=== PATIENT | female | born 1945 | race Caucasian/White ===

== ENCOUNTER 2025-05-08 12:25 | Inpatient (IN) | payer OTHER, MEDICARE ==
[~2025-05-08] VITALS: Ht 162.6 cm; Wt 49.9 kg
[~2025-05-08 12:25] MED LIST: ALBU3IS INH; ALBU4; ALBU90OI INH; ALBU90OI6 INH; ALLO100 PO; ALPR.5 PO; AMLO5 PO; AMOX500 PO; AZIT500 PO; BENZ100A PO; CENTRUM SILVER1 EAC3 PO; CEPH500 PO; CLAR500 PO; DILT180 PO; DULERA 100 MCG/13 GM INH; DULERA 200 MCG/13 GM INH; FLUSAL2505 INH; FURO20 PO; GUAI600T33 PO; HYDCHL12.5 PO; HYDROCODONE-AC1 EA10 PO; Hydrochlorothia25 MG PO; LEVO750 PO; LISHYD2025 PO; LISI20 PO; LOSA50 PO; METO50 PO; MORPHINE SULFAT10 MG PO; NYST100000 PO; POTA8 PO; PRAM.125 PO; PRAM.5 PO; PRED20 PO; PRED20 UD; PRED5; Prednisone20 MG PO; TIOT18 INH; UNISOM25 MG PO
[2025-05-08] MEDS ORDERED: HYDROmorphone HCl/Pf 1MG SYR IV ONE (16:20)
[2025-05-08] MEDS ORDERED: BUPR150ER PO (18:06)
[2025-05-08] MEDS ORDERED: METO100ER PO (18:06)
[2025-05-08] MEDS ORDERED: POTCHL20ER PO (18:06)
[2025-05-08 18:07] LABS: BASOPHILS ABSOLUTE AUTO 0.06 K/mm3 (0.00-0.23); BASOPHILS PERCENT AUTO 0 % (0-2); EOSINOPHILS ABSOLUTE AUTO 0.01 K/mm3 (0.00-0.68); EOSINOPHILS PERCENT AUTO 0 % (0-6); Hematocrit 38.6 % (33.0-51.0); Hemoglobin 13.1 g/dL (11.5-16.0); IMMATURE GRAN ABSOLUTE AUTO 0.14 K/mm3 (0.00-0.10); IMMATURE GRAN PERCENT AUTO 1 % (0-1); LYMPHOCYTES ABSOLUTE AUTO 1.09 K/mm3 (0.84-5.20); LYMPHOCYTES PERCENT AUTO 6 % (21-46); MONOCYTES ABSOLUTE AUTO 0.95 K/mm3 (0.16-1.47); MONOCYTES PERCENT AUTO 5 % (4-13); Mean Corpuscular HGB Conc 33.9 g/dL (31.5-36.5); Mean Corpuscular Volume 94 fL (80-100); NEUTROPHILS ABSOLUTE AUTO 15.42 K/mm3 (1.96-9.15); NEUTROPHILS PERCENT AUTO 87 % (41-73); NRBC ABSOLUTE 0.00 K/mm3 (0.00-0.02); NRBC Auto 0.0 /100 WBC (0.0-0.2); Platelet Count 252 K/mm3 (150-400); RDW Coefficient Variation 12.8 % (11.7-14.2); RDW Standard Deviation 44.1 fL (35.1-46.3)
[2025-05-08] MEDS ORDERED: IMODIUM A-D2 M1 (18:07)
[2025-05-08] MEDS ORDERED: FURO40 PO (18:07)
[2025-05-08] MEDS ORDERED: SODCHL1 PO (18:07)
[2025-05-08 18:09] LABS: Source, Urine Straight Cath
[2025-05-08] MEDS ORDERED: ALBU2.5V5 (18:14)
[2025-05-08 18:15] LABS: Bilirubin, Urine Neg (Neg); Color, Urine Yellow (P-Yellow); Glucose Qualitative, Urine Neg (Neg); Ketones, Urine Neg (Neg); Leukocyte Esterase, Urine 1+ (Neg); Protein, Urine 1+ (Neg); Specific Gravity, Urine 1.010 (1.003-1.022); Urobilinogen, Urine NORM (Normal)
[2025-05-08] MEDS ORDERED: ALBU90OI (18:15)
[2025-05-08 18:24] LABS: Red Blood Cells, Urine 0-2 /hpf (0-2)
[2025-05-08 18:54] LABS: Alanine Aminotransfer (ALT/SGP 31.0 U/L (12-78); Albumin, Blood 3.4 g/dL (3.4-5.0); Albumin/Globulin Ratio 1.0 (0.8-1.8); Anion Gap 17.0 mmol/L (3-11); Aspartate Aminotrans (AST/SGOT 29.0 U/L (12-37); Bilirubin, Total 1.1 mg/dL (0.1-1.0); Blood Urea Nitrogen 17.0 mg/dL (8-24); CO2, Blood 24.0 mmol/L (21-32); Calcium, Blood 8.4 mg/dL (8.5-10.1); Chloride, Blood 91.0 mmol/L (98-108); Creatinine, Blood 1.09 mg/dL (0.40-1.00); Globulin, Blood 3.4 g/dL (2.2-4.0); Glucose, Blood 51.0 mg/dL (70-99); Potassium, Blood 4.4 mmol/L (3.5-5.5); Sodium, Blood 128.0 mmol/L (136-145); Total Protein, Blood 6.8 g/dL (6.4-8.2)
[2025-05-08] MEDS ORDERED: NS 1,000 ML IV SCH ×2 (19:10→19:35)
[2025-05-08] MEDS ORDERED: CefTRIAXone Sodium 1,000 MG in NS 100 ML IV ONE (19:10)
[2025-05-08] MEDS ORDERED: HYDROmorphone HCl/Pf 1MG SYR IV SCH (19:10)
[2025-05-08] MEDS ORDERED: Albuterol 2.5 MG/3 ML VIAL INH PRN (19:30)
[2025-05-08] MEDS ORDERED: Ondansetron HCl 2 MG / ML 2ML Vial IV PRN (19:30)
[2025-05-08] MEDS ORDERED: Magnesium Sulf 2 GM/Water 50ML 50 ML IV ONE (21:15)
[2025-05-08 22:22] VITALS: BP 126/46
[2025-05-09] VITALS (13 sets, daily range): BP systolic 99–144; BP diastolic 49–93
[2025-05-09] MEDS ORDERED: D5W-1/2NS 1,000 ML IV SCH ×2 (04:10→04:25)
--- NOTE | 2025-05-09 04:14 | NUR ---
SHIFT SUMMARY PT ER ADMIT THIS SHIFT FOR L HIP FX, PLAN IS FOR OR TODAY. PT HAS RESTED IN BED, DENIES NEEDS DURING NURSE ROUNDS. PT HAD NOT VOIDED IN ER OR SINCE ADMISSION, BLADDER SCAN REVEALED OVER 600 MLS IN BLADDER. PT WAS THEN ABLE TO VOID 300 MLS USING FRACTURE BRO. PT CONFUSED, BUT FOLLOWS DIRECTIONS WELL AND ANSWERS QUESTIONS APPROPRIATELY. HOWEVER AT TIMES PT WILL MAKE STATEMENTS AT TIMES THAT DO NOT MAKE SENSE AND FORGETS WHERE SHE IS. VITALS ARE STABLE. PT NPO FOR PROCEDURE. BED IN LOWEST POSITION, CALL LIGHT WITHIN REACH.
[2025-05-09] MEDS ORDERED: Naloxone HCl 0.4MG / ML 1ML Vial IV PRN ×2 (05:25→14:15)
[2025-05-09] MEDS ORDERED: HYDROmorphone HCl/Pf 1MG SYR IV PRN ×3 (05:25→14:20)
[2025-05-09 05:26] LABS: Hematocrit 36.6 % (33.0-51.0); Hemoglobin 12.1 g/dL (11.5-16.0); Mean Corpuscular HGB Conc 33.1 g/dL (31.5-36.5); Mean Corpuscular Volume 95 fL (80-100); NRBC ABSOLUTE 0.00 K/mm3 (0.00-0.02); NRBC Auto 0.0 /100 WBC (0.0-0.2); Platelet Count 204 K/mm3 (150-400); RDW Coefficient Variation 12.7 % (11.7-14.2); RDW Standard Deviation 43.9 fL (35.1-46.3)
[2025-05-09 05:56] LABS: Anion Gap 8.0 mmol/L (3-11); Blood Urea Nitrogen 20.0 mg/dL (8-24); CO2, Blood 29.0 mmol/L (21-32); Calcium, Blood 7.5 mg/dL (8.5-10.1); Chloride, Blood 98.0 mmol/L (98-108); Creatinine, Blood 1.24 mg/dL (0.40-1.00); Glucose, Blood 83.0 mg/dL (70-99); Magnesium, Blood 2.1 mg/dL (1.6-2.4); Potassium, Blood 3.7 mmol/L (3.5-5.5); Sodium, Blood 131.0 mmol/L (136-145)
[2025-05-09] MEDS ORDERED: Folic Acid 1 MG TAB PO SCH (09:00)
[2025-05-09] MEDS ORDERED: Multivitamins 1 Tab PO SCH (09:00)
--- NOTE | 2025-05-09 10:44 | NUR ---
PT'S DAUGHTER EDEN PHONE NUMBER IS .
[2025-05-09] MEDS ORDERED: Ondansetron HCl 2 MG / ML 2ML Vial IV PRN ×2 (12:55→14:15)
[2025-05-09] MEDS ORDERED: FentaNYL Citrate 50 MCG/ML 2 ML Injection IV PRN ×2 (12:55)
[2025-05-09] MEDS ORDERED: Albuterol 2.5 MG/3 ML VIAL INH PRN ×2 (12:55)
[2025-05-09] MEDS ORDERED: Tranexamic Acid 100 ML IV ONE (14:01)
[2025-05-09] MEDS ORDERED: CeFAZolin Sodium 2,000 MG VIAL ONE (14:01)
[2025-05-09] MEDS ORDERED: HYDROcodone 5-APAP 325 TAB PO PRN (14:10)
[2025-05-09] MEDS ORDERED: Magnesium Hydroxide Conc 10 ML UDC PO PRN (14:15)
[2025-05-09] MEDS ORDERED: FentaNYL Citrate 50 MCG/ML 2 ML Injection ONE (14:37)
[2025-05-09] MEDS ORDERED: ePHEDrine Sulfate 50 MG/ML 1ML Injection ONE (14:48)
--- NOTE | 2025-05-09 17:36 | NUR ---
SHIFT SUMMARY S/P LEFT PERC HIP PINNING. BULKY FOAM DRESSING IS CDI. PT DENIES PAIN. ON 4L VIA NC TO MAINTAIN SATS >92%. PLAN TO TITRATE DOWN TOLERATED TO BASELINE OF 2L. OFFERING SIPS OF WATER AND PO. NO POST OP VOID YET. PUREWICK IN PLACE. POST OP VSS AND IN PROGRESS. BED ALARM IN PLACE FOR SAFETY. PT IS A+O X4, BUT CAN BE FORGETFUL AT TIMES. LAST CIWA SCORE WAS 4. CALL LIGHT WITHIN REACH.
[2025-05-10 04:07] VITALS: BP 123/56
--- NOTE | 2025-05-10 04:56 | NUR ---
BIOMETRICS ANALYST SUMMARY PT IS POD 0 FOR L HIP PINNING. BULKY GAUZE DRESSING TO L HIP C/D/I. PT AAOX4 WITH SOME INTERMITTENT CONFUSION BUT IS EASILY REORIENTED. PT HAS HAD GOOD PAIN CONTROL THROUGH THE NIGHT AND HAS NOT REQUESTED PAIN MEDS THUS FAR. PT WAS ABLE TO USE THE BEDPAN AND VOID AROUND 600 ML EARLIER IN SHIFT WHICH WAS HER FIRST POST OP VOID. PT IS STILL AWAITING HER FIRST SESSION WITH PHYSICAL THERAPY.CAROLINES, DEREK.
[2025-05-10 05:57] VITALS: BP 131/69
[2025-05-10 06:05] LABS: BASOPHILS ABSOLUTE AUTO 0.01 K/mm3 (0.00-0.23); BASOPHILS PERCENT AUTO 0 % (0-2); EOSINOPHILS ABSOLUTE AUTO 0.00 K/mm3 (0.00-0.68); EOSINOPHILS PERCENT AUTO 0 % (0-6); Hematocrit 35.1 % (33.0-51.0); Hemoglobin 11.6 g/dL (11.5-16.0); IMMATURE GRAN ABSOLUTE AUTO 0.08 K/mm3 (0.00-0.10); IMMATURE GRAN PERCENT AUTO 1 % (0-1); LYMPHOCYTES ABSOLUTE AUTO 0.76 K/mm3 (0.84-5.20); LYMPHOCYTES PERCENT AUTO 8 % (21-46); MONOCYTES ABSOLUTE AUTO 0.28 K/mm3 (0.16-1.47); MONOCYTES PERCENT AUTO 3 % (4-13); Mean Corpuscular HGB Conc 33.0 g/dL (31.5-36.5); Mean Corpuscular Volume 96 fL (80-100); NEUTROPHILS ABSOLUTE AUTO 8.07 K/mm3 (1.96-9.15); NEUTROPHILS PERCENT AUTO 88 % (41-73); NRBC ABSOLUTE 0.00 K/mm3 (0.00-0.02); NRBC Auto 0.0 /100 WBC (0.0-0.2); Platelet Count 215 K/mm3 (150-400); RDW Coefficient Variation 12.7 % (11.7-14.2); RDW Standard Deviation 45.4 fL (35.1-46.3)
--- NOTE | 2025-05-10 06:17 | NUR ---
PT HAVING INCREASED CONFUSION AND HALLUCINATIONS. PT HAD EMPTY MEDICATION BOTTLE FROM HOME ON HER BED THAT WAS EMPTY. MEDICATION LABEL WAS FOR NARCOTIC PAIN MEDICATION THAT WAS FILLED IN [place]ARCH AT PHARMACY IN [place] WHICH PT RECENTLY MOVED FROM. PT DENIES TAKING ANY OF THESE MEDICATIONS WHILE AT THE HOSPITAL. PT STATED "THERE WAS A MAN IN A BLACK HOODIE THAT WAS SITTING NEXT TO ME EARLIER THAT I PAID FOR HELPING ME MOVE MY STUFF OUT OF THE AUL. MAYBE HE TOOK THE PILLS". PT'S VITALS ARE WNL. NOTIFIED DR ENNIS OF INCREASED CONFUSION AND HALLUCINATIONS AND POSSIBILITY OF PT TAKING HOME NARCOTICS. DR ENNIS STATED THAT SINCE VITALS AND RESPIRATORY STATUS ARE STABLE AT THIS TIME TO JUST MONITOR FOR NOW AND MAKE SURE THAT AN ORDER OF NARCAN IS ON HER MAR AND TO GIVE A LOWER 25 MG DOSE OF LIBRIUM NOW. LIBRIUM GIVEN, PT STILL CONFUSED BUT IS COOPERATIVE AND FOLLOWS DIRECTION. WCTM.
[2025-05-10 06:28] LABS: Anion Gap 10.0 mmol/L (3-11); Blood Urea Nitrogen 16.0 mg/dL (8-24); CO2, Blood 28.0 mmol/L (21-32); Calcium, Blood 8.3 mg/dL (8.5-10.1); Chloride, Blood 98.0 mmol/L (98-108); Creatinine, Blood 1.04 mg/dL (0.40-1.00); Glucose, Blood 123.0 mg/dL (70-99); Potassium, Blood 4.0 mmol/L (3.5-5.5); Sodium, Blood 132.0 mmol/L (136-145)
[2025-05-10 07:05] VITALS: BP 141/64
--- NOTE | 2025-05-10 10:30 | NUR ---
PALLIATIVE CARE VISIT: CALLED BY RN TO CONSULT FOR REFERRAL TO COMPLETE [facility]. REVIEWED MEDICAL RECORD, SPOKE TO DR. CARLSON PRIOR TO VISIT. MET WITH PT IN HER ROOM. PT IS A/O X 4 ABLE TO MAKE INFORMED DECISIOMS. SHE STATED SHE HAD ELECTED TO BE DNR PRIOR HOSPITALIZATIONS. SHE WOULD NOT WANT INTUBATION. POLST COMPLETED PER HER REQUESTED CHOICES. SENT TO [facility] REGISTRY, MEDICAL RECORDS AND COPY ON CHART. ORIGINAL TO GO TO PT.
[2025-05-10 10:49] VITALS: BP 122/54
--- NOTE | 2025-05-10 12:28 | NUR ---
WOUND CARE WOUND CARE DONE TO L HIP THIS SHIFT PER DR. DURON ORDER IN THE EMAR.
[2025-05-10 14:49] VITALS: BP 119/59
[2025-05-10] MEDS ORDERED: Enoxaparin 30 MG/0.3 ML SYR SC SCH (17:00)
--- NOTE | 2025-05-10 18:04 | NUR ---
SHIFT SUMMARY PT AOX3-4, APPEARED TO HALLUCINATE AT TIMES BUT ABLE TO REORIENT. ABLE TO TELL THE PT THAT WHAT WAS BEING SAID COULD NOT HAVE HAPPENED AND SHE WOULD SAY, "THAT WAS A HALLUCINATION". MEDICATED FOR ETOH PER THE EMAR, ALSO MEDICATED FOR PAIN PER THE EMAR. REPOSITIONED THROUGHOUT THE SHIFT. 1 ASSIST WITH THE FWW TO THE CHAIR. SEE WOUND CARE NOTE. PT CALLS AND MAKES HER NEEDS KNOWN. POSSIBLE DC TO SNF. CALL LIGHT WITHIN REACH, BED LOCKED AND IN THE LOWEST POSITION. WILL REPORT TO ONCOMING NURSE.
[2025-05-10 20:01] VITALS: BP 116/59
[2025-05-11 02:31] VITALS: BP 134/68
--- NOTE | 2025-05-11 03:24 | NUR ---
PT WITH INCREASED CONFUSION,ATTEMPTING OOB WITHOUT CALLING,IMPULSIVE.PULLING AT LINES, TAKING OFF O2,BUT DESATS TO 83% GAVE LIBRIUM 25 MG WITH INEFFECTIVE RESULTS.GAVE ADDITIONAL LIBRIUM.
--- NOTE | 2025-05-11 05:10 | NUR ---
SUMMARY PT CONTINUES INCREASING HALLUCINATIONS.PICKS AT TUBINGS,CIWA 11. PT HAS ONLY MINIMAL VOID. REPORTS SHE ONLY VOIDS 2 X DAY AT HOME WITH BASELINE REPORTED 600-700 ML EACH VOID WITH PRIOR HOSPITALIZATIONS.CURRENT BLADDER SCAN 451 ML. BSC WITH DRIBBLING ONLY.PT WITH NO URGE TO VOID,NO DISCOMFORT,MEPLEX REPLACED TO COCCYX FOR REDNESS AND PLLACED TO UPPER SPINE WITH "SCOLIOSIS" FOR MILD PINK.FIRE ASSISTANT RONDA CALLED HOSPITALIST REGARDING ABOVE AND RECEIVED ORDERS.
[2025-05-11 07:19] VITALS: BP 133/71
--- NOTE | 2025-05-11 14:31 | NUR ---
pt unable to void this shift. bladder scanned for greater than 1000cc. Dr Campos contacted. Plan is to place yun catheter.
[2025-05-11 14:33] VITALS: BP 145/75
--- NOTE | 2025-05-11 17:42 | NUR ---
PT SLEEPING. IV INFUSING R ARM. PETERSON CATH DRAINING CLEAR YELLOW URINE. WILL CONTINUE TO MONITOR.
[2025-05-11 18:16] VITALS: BP 119/62
[2025-05-12 03:48] VITALS: BP 151/72
--- NOTE | 2025-05-12 04:35 | NUR ---
SHIFT SUMMARY POD 3 S/P LEFT HIP REPAIR. PT VERY CONFUSED AND IMPULSIVE AT TIMES. CIWA OF 8. MEDICATED PER EMAR. AQUACEL DRESSING X1 TO LEFT HIP CDI. PETERSON TO GRAVITY, YELLOW URINE NOTED. IVF INFUSING PER ORDERS. BED ALARM OF FOR SAFETY. PT ABLE TO MAKE NEEDS KNOWN. HAS CALL LIGHT. ON 2L NC, CONT BIOX IN PLACE W/ SPO2 AT 98%. PLAN TO WORK WITH THERAPY TODAY. WILL GIVE REPORT TO ONCOMING RN.
[2025-05-12 07:34] VITALS: BP 132/82
[2025-05-12 09:25] LABS: Anion Gap 7.0 mmol/L (3-11); Blood Urea Nitrogen 11.0 mg/dL (8-24); CO2, Blood 28.0 mmol/L (21-32); Calcium, Blood 8.2 mg/dL (8.5-10.1); Chloride, Blood 102.0 mmol/L (98-108); Creatinine, Blood 0.96 mg/dL (0.40-1.00); Glucose, Blood 60.0 mg/dL (70-99); Magnesium, Blood 1.3 mg/dL (1.6-2.4); Potassium, Blood 3.4 mmol/L (3.5-5.5); Sodium, Blood 134.0 mmol/L (136-145)
--- NOTE | 2025-05-12 11:56 | NUR ---
[facility] is awake and sitting on a chair when she welcomes my visit. Pt. is pleasant but displays evidence of being drowsy. Faciliate a life review and pt. shares that she was raised in a mormonism amish but has not attended any amish in many years. Listen with empathy and interest. Consider other matters of niko, family and belief and Pt. displayed more evidence of somnolemce. Prayed for the Pt. Pt. was completely somnolent at the end of the visit.
[2025-05-12] MEDS ORDERED: Magnesium Sulf 2 GM/Water 50ML 50 ML IV ONE (15:05)
[2025-05-12 15:38] VITALS: BP 145/70
--- NOTE | 2025-05-12 17:05 | NUR ---
SHIFT SUMMARY PT RESTING IN BED. UP TO CHAIR EARLIER. MEDICATED PER CIWA X-1 TODAY. PT REMAINS CALM AT THIS TIME. WILL CONTINUE TO MONITOR.
[2025-05-12 19:41] VITALS: BP 164/78
[2025-05-13 04:33] VITALS: BP 154/66
[2025-05-13 04:52] LABS: Magnesium, Blood 1.4 mg/dL (1.6-2.4)
[2025-05-13 04:58] LABS: Anion Gap 10.0 mmol/L (3-11); Blood Urea Nitrogen 9.0 mg/dL (8-24); CO2, Blood 26.0 mmol/L (21-32); Calcium, Blood 8.2 mg/dL (8.5-10.1); Chloride, Blood 101.0 mmol/L (98-108); Creatinine, Blood 0.88 mg/dL (0.40-1.00); Glucose, Blood 47.0 mg/dL (70-99); Potassium, Blood 3.8 mmol/L (3.5-5.5); Sodium, Blood 133.0 mmol/L (136-145)
--- NOTE | 2025-05-13 06:38 | NUR ---
SHIFT SUMMARY NOC. PT A/O TO SELF AND PERSON. PT CONFUSED AND HAVING HALLUCINATIONS AT START OF SHIFT. HALLUCINATIONS IMPROVED T/O THE NIGHT, CIWA'S Q4 HOURS LESS THAN SCORE OF 8, PLEASE SEE DOCUMENTATION. PT SETS OFF BED ALARM OCCASIONALLY BUT IS REDIRECTABLE. AQUACEL C/D/I. PT HAD A BM THIS SHIFT. PETERSON CATHETER BELOW BLADDER LEVEL AND DRAINING TO GRAVITY. PT MEDICATED FOR PAIN X1 WITH NORCO. PT HAD HYPOGLYCEMIC EVENT WITH CBG OF 47, PT HAD NO INCREASED CONFUSION WITH LOW CBG, PT DRANK 8 OUNCES OF ORANGE JUICE AND GLUCOSE CAME UP TO 65. SKI PATROL OFFICERBABAK NAQVI NOTIFIED PROVIDER. CALL LIGHT IN REACH.
[2025-05-13] MEDS ORDERED: Mag Sulfate 1 GM/D5% 100ML 100 ML IV STA (08:35)
[2025-05-13 14:41] VITALS: BP 166/81
--- NOTE | 2025-05-13 18:37 | NUR ---
SUMMARY: PT IS POD4 R HIP REPAIR. VSS. PT HAS BEEN A/O MOST OF TODAY. A LITTLE MORE FORGETFUL TONIGHT. BED/CHAIR ALARM SET, PT HAS BEEN USING CALL LIGHT. SURGICAL SITE WNL, PT MOVES WELL WITH SBA AND FWW. PETERSON DC'D AND PT VOIDED WITH A BM TONIGHT-UNMEASURED. PT HAS DENIED PAIN, CIWA SCORE 0-1 TODAY. PLAN IS FOR SNF TOMORROW. THIS RN SPOKE WITH DAUGHTER ISAIAH AND UPDATED ON PT STATUS. NO ACUTE CONCERNS AT THIS TIME.
[2025-05-13 19:57] VITALS: BP 148/74
[2025-05-14 04:11] VITALS: BP 174/87
[2025-05-14 04:52] LABS: Anion Gap 10.0 mmol/L (3-11); Blood Urea Nitrogen 9.0 mg/dL (8-24); CO2, Blood 30.0 mmol/L (21-32); Calcium, Blood 8.5 mg/dL (8.5-10.1); Chloride, Blood 99.0 mmol/L (98-108); Creatinine, Blood 0.76 mg/dL (0.40-1.00); Glucose, Blood 72.0 mg/dL (70-99); Magnesium, Blood 1.6 mg/dL (1.6-2.4); Potassium, Blood 3.6 mmol/L (3.5-5.5); Sodium, Blood 135.0 mmol/L (136-145)
[2025-05-14 05:43] VITALS: BP 156/86
--- NOTE | 2025-05-14 06:26 | NUR ---
SHIFT SUMMARY PT S/P R HIP REPAIR. SURGICAL SITE WNL, AQUACEL TO LEFT HIP C/D/I. PAIN MANAGED PER EMAR. PT FORGETFUL, BUT EASILY REDIRECTABLE. PT HAS BEEN UP AND AMBULATING WITH 1 PA. PT VOIDING POST CATHETER REMOVAL YESTERDAY AFTERNOON. VITALS STABLE. PLAN OF CARE REMAINS UNCHANGED. BED IN LOWEST POSITION, CALL LIGHT WITHIN.
[2025-05-14 07:12] VITALS: BP 171/81
[2025-05-14] MEDS ORDERED: Mag Sulfate 1 GM/D5% 100ML 100 ML IV STA (07:50)
[2025-05-14] MEDS ORDERED: LOSA25 PO (10:14)
[2025-05-14] MEDS ORDERED: DOCU100 PO (10:14)
[2025-05-14] MEDS ORDERED: B-1100 M1 PO (10:15)
[2025-05-14] MEDS ORDERED: POTA10T PO (10:16)
[2025-05-14] MEDS ORDERED: ONE DAILY MUL400 MCG PO (10:16)
[2025-05-14] MEDS ORDERED: XARELTO10 M1 PO (10:17)
[2025-05-14] MEDS ORDERED: CIPR250 PO ×2 (13:45→14:43)
[2025-05-14 15:45] VITALS: BP 165/79
--- NOTE | 2025-05-14 16:34 | NUR ---
DISCHARGE PT CURRENTLY A+O X4. EDUCATED ON AND RECEIVED PRINTED DISCHARGE INSTRUCTIONS AND VERBALIZED AN UNDERSTANDING. RX FAXED TO [facility] PER PT REQUEST. IV DC'D. PT GATHERED ALL PERSONAL BELONGINGS. PT REPORTS DAUGHTER WILL BE HERE TO PICK PT UP AND TAKE HER HOME AT APPROX 1700. EXTRA AQUACEL DRESSINGS GIVEN TO PT. CALL LIGHT WITHIN REACH. BED ALARM IN PLACE.
== END 2025-05-14 17:40 | disposition home or self-care (01) | DRG 480 ==
LOC: ER 12:25 → SURS 19:22
PROVIDERS: Internal Medicine; Nurse Practitioner Acute Care; Orthopaedic Surgery; Student in an Organized Health Care Education/Training Program; ADMIT Student in an Organized Health Care Education/Training Program
PROC: 0QH734Z Insertion of Internal Fixation Device into Left Upper Femur, Percutaneous Approach (ICD-10-PCS; principal; 2025-05-09 10:45)
DX: S72.012A Unspecified intracapsular fracture of left femur, initial encounter for closed fracture (principal); J96.21 Acute and chronic respiratory failure with hypoxia; E87.1 Hypo-osmolality and hyponatremia; E87.20 Acidosis, unspecified; N17.9 Acute kidney failure, unspecified; N39.0 Urinary tract infection, site not specified; W01.0XXA Fall on same level from slipping, tripping and stumbling without subsequent striking against object, initial encounter; J44.9 Chronic obstructive pulmonary disease, unspecified; Z79.899 Other long term (current) drug therapy; Z90.49 Acquired absence of other specified parts of digestive tract; Z90.710 Acquired absence of both cervix and uterus; Z98.890 Other specified postprocedural states; Z88.5 Allergy status to narcotic agent; M21.052 Valgus deformity, not elsewhere classified, left hip; F32.A Depression, unspecified; E16.2 Hypoglycemia, unspecified; F10.20 Alcohol dependence, uncomplicated; I12.9 Hypertensive chronic kidney disease with stage 1 through stage 4 chronic kidney disease, or unspecified chronic kidney disease; N18.30 Chronic kidney disease, stage 3 unspecified; F17.210 Nicotine dependence, cigarettes, uncomplicated; B96.20 Unspecified Escherichia coli [E. coli] as the cause of diseases classified elsewhere; G31.2 Degeneration of nervous system due to alcohol; J43.9 Emphysema, unspecified
CPT/HCPCS: 36415; 70450; 73502; 80048; 80053; 81001; 82947; 83605; 83735; 83880; 85025; 85027; 87040; 87077; 87086; 87186; 93005; 93010; 93971; 94640; 94664; 94760; 94762; 96374; 97110; 97112; 97116; 97162; 97166; 97530; 97535; 99285-25; A9270; C1713; C1769; J0690; J0696; J1171; J1650; J2704; J3010; J3411; J3475; J7030; J7042; J7120

== ENCOUNTER 2025-05-20 11:09 | Inpatient (IN) | payer MEDICARE ==
[~2025-05-20] VITALS: Ht 162.6 cm; Wt 44.5 kg
[~2025-05-20 11:09] MED LIST changes: +ALBU2.5V5; +ALBU90OI; +B-1100 M1 PO; +BUPR150ER PO; +CIPR250 PO; +DOCU100 PO; +FURO40 PO; +IMODIUM A-D2 M1; +LOSA25 PO; +METO100ER PO; +ONE DAILY MUL400 MCG PO; +POTA10T PO; +POTCHL20ER PO; +SODCHL1 PO; +XARELTO10 M1 PO
[2025-05-20 12:09] LABS: Source, Urine Clean Catch
[2025-05-20 12:19] LABS: BASOPHILS ABSOLUTE AUTO 0.09 K/mm3 (0.00-0.23); BASOPHILS PERCENT AUTO 1 % (0-2); EOSINOPHILS ABSOLUTE AUTO 0.30 K/mm3 (0.00-0.68); EOSINOPHILS PERCENT AUTO 4 % (0-6); Hematocrit 34.7 % (33.0-51.0); Hemoglobin 11.0 g/dL (11.5-16.0); IMMATURE GRAN ABSOLUTE AUTO 0.04 K/mm3 (0.00-0.10); IMMATURE GRAN PERCENT AUTO 1 % (0-1); LYMPHOCYTES ABSOLUTE AUTO 2.00 K/mm3 (0.84-5.20); LYMPHOCYTES PERCENT AUTO 27 % (21-46); MONOCYTES ABSOLUTE AUTO 0.72 K/mm3 (0.16-1.47); MONOCYTES PERCENT AUTO 10 % (4-13); Mean Corpuscular HGB Conc 31.7 g/dL (31.5-36.5); Mean Corpuscular Volume 98 fL (80-100); NEUTROPHILS ABSOLUTE AUTO 4.34 K/mm3 (1.96-9.15); NEUTROPHILS PERCENT AUTO 58 % (41-73); NRBC ABSOLUTE 0.00 K/mm3 (0.00-0.02); NRBC Auto 0.0 /100 WBC (0.0-0.2); Platelet Count 309 K/mm3 (150-400); RDW Coefficient Variation 12.8 % (11.7-14.2); RDW Standard Deviation 46.0 fL (35.1-46.3)
[2025-05-20 12:31] LABS: Bilirubin, Urine Neg (Neg); Glucose Qualitative, Urine Neg (Neg); Ketones, Urine Neg (Neg); Leukocyte Esterase, Urine Neg (Neg); Protein, Urine Neg (Neg); Specific Gravity, Urine 1.010 (1.003-1.022); Urobilinogen, Urine NORM (Normal)
[2025-05-20 12:38] LABS: Alanine Aminotransfer (ALT/SGP 16.0 U/L (12-78); Albumin, Blood 2.9 g/dL (3.4-5.0); Albumin/Globulin Ratio 0.9 (0.8-1.8); Anion Gap 7.0 mmol/L (3-11); Aspartate Aminotrans (AST/SGOT 15.0 U/L (12-37); Bilirubin, Total 0.5 mg/dL (0.1-1.0); Blood Urea Nitrogen 28.0 mg/dL (8-24); CO2, Blood 30.0 mmol/L (21-32); Calcium, Blood 9.7 mg/dL (8.5-10.1); Chloride, Blood 103.0 mmol/L (98-108); Creatinine, Blood 1.81 mg/dL (0.40-1.00); Globulin, Blood 3.2 g/dL (2.2-4.0); Glucose, Blood 88.0 mg/dL (70-99); Magnesium, Blood 1.5 mg/dL (1.6-2.4); Potassium, Blood 4.2 mmol/L (3.5-5.5); Sodium, Blood 136.0 mmol/L (136-145); Total Protein, Blood 6.1 g/dL (6.4-8.2)
[2025-05-20 12:43] LABS: Color, Urine Pale Yellow (P-Yellow)
[2025-05-20] MEDS ORDERED: CefTRIAXone Sodium 1,000 MG in NS 100 ML IV ONE (13:05)
[2025-05-20] MEDS ORDERED: NS 1,000 ML IV SCH ×2 (13:05→23:20)
[2025-05-20] MEDS ORDERED: Heparin Sodium,Porcine 5,000 UNIT/0.5 ML SDV SC SCH (14:00)
[2025-05-20 15:28] VITALS: BP 136/63
--- NOTE | 2025-05-20 16:25 | NUR ---
PATIENT ARRIVED TO UNIT VIA GOURNEY AND HOSPITAL STAFF. ORIENTED TO ROOM AND CALL LIGHT USE. ENCOURAGED TO USE THE CALL LIGHT FOR BATHROOM NEEDS. BOLUS FINISHING UP, DISCONNECTED FROM PATIENT. BED IN LOW POSITION. SOME NOTED BLANCHABLE REDNESS ON COCCYX. PATIENT ALERT AND ORIENTED. NO CONCERNS
[2025-05-20] MEDS ORDERED: HYDROcodone 5-APAP 325 TAB PO PRN (18:40)
[2025-05-20 19:24] VITALS: BP 124/67
--- NOTE | 2025-05-21 00:18 | NUR ---
BLADDER SCAN SHOWS <288MLS URINE. PT REPORTS SHE HAVEN'T VOIDED SINCE THE BEGINNING OF THE DIRECTOR SALES AND [employer] MARKETING. PT ABLE TO VOID IN THE RESTROOM. CHARGE NURSE TONIO NOTIFIED. NS INFUSION STARTED ORDERED @100MLS/HR.
--- NOTE | 2025-05-21 03:57 | NUR ---
SHIFT SUMMARY @HS PT UP SITTING BY THE BEDSIDE, USED RESTROOM TO VOID. AT MIDNIGHT BLADDER SCAN SHOWING <288MLS IN THE BLADDER. ENCOURAGED TO USE THE CALL LIGHT WHEN NEED TO VOID. PT RESTING WELL T/O THE NIGHT. NS INFUSING ORDERED. PT C/O CHRONIC NECK AND BACK PAIN, PRN NORCO ADMINISTERED ORDERED. PT REPORTS 9/10 IN PAIN SCALE. EFFECTIVE. LEFT FEMUR FRACTURE DRESSING C/D/I. PT IS SBA/1-PERSON ASSIST WITH FWW TO THE RESTROOM. PT IS A/O X4, APPEARED ANXIOUS AT HS. BED AT THE LOWEST POSITION, CALL LIGHT WITHIN REACH. WILL BLADDER SCAN BEFORE 0645/END OF THIS SHIFT. CHARGE NURSE TONIO WAS NOTIFIED.
[2025-05-21 04:57] LABS: BASOPHILS ABSOLUTE AUTO 0.08 K/mm3 (0.00-0.23); BASOPHILS PERCENT AUTO 1 % (0-2); EOSINOPHILS ABSOLUTE AUTO 0.26 K/mm3 (0.00-0.68); EOSINOPHILS PERCENT AUTO 4 % (0-6); Hematocrit 32.9 % (33.0-51.0); Hemoglobin 10.6 g/dL (11.5-16.0); IMMATURE GRAN ABSOLUTE AUTO 0.03 K/mm3 (0.00-0.10); IMMATURE GRAN PERCENT AUTO 1 % (0-1); LYMPHOCYTES ABSOLUTE AUTO 2.39 K/mm3 (0.84-5.20); LYMPHOCYTES PERCENT AUTO 41 % (21-46); MONOCYTES ABSOLUTE AUTO 0.64 K/mm3 (0.16-1.47); MONOCYTES PERCENT AUTO 11 % (4-13); Mean Corpuscular HGB Conc 32.2 g/dL (31.5-36.5); Mean Corpuscular Volume 97 fL (80-100); NEUTROPHILS ABSOLUTE AUTO 2.48 K/mm3 (1.96-9.15); NEUTROPHILS PERCENT AUTO 42 % (41-73); NRBC ABSOLUTE 0.00 K/mm3 (0.00-0.02); NRBC Auto 0.0 /100 WBC (0.0-0.2); Platelet Count 288 K/mm3 (150-400); RDW Coefficient Variation 12.7 % (11.7-14.2); RDW Standard Deviation 45.2 fL (35.1-46.3)
[2025-05-21 05:11] VITALS: BP 117/50
[2025-05-21 05:25] LABS: Anion Gap 8.0 mmol/L (3-11); Blood Urea Nitrogen 29.0 mg/dL (8-24); CO2, Blood 27.0 mmol/L (21-32); Calcium, Blood 8.4 mg/dL (8.5-10.1); Chloride, Blood 104.0 mmol/L (98-108); Creatinine, Blood 1.6 mg/dL (0.40-1.00); Glucose, Blood 77.0 mg/dL (70-99); Potassium, Blood 3.6 mmol/L (3.5-5.5); Sodium, Blood 135.0 mmol/L (136-145)
[2025-05-21] MEDS ORDERED: Albuterol HFA200 ACT/6.7 GM INH INH PRN ×2 (07:15→08:10)
[2025-05-21 07:54] VITALS: BP 139/63
[2025-05-21 08:09] LABS: Creatinine, Urine Random 39.1 mg/dL (27.00-270.00); Sodium, Urine, Random 74.0 mmol/L (20-110)
[2025-05-21 10:21] VITALS: BP 149/71
[2025-05-21 16:38] VITALS: BP 141/73
--- NOTE | 2025-05-21 17:38 | NUR ---
SHIFT SUMMARY MS LAWRENCE HAS BEEN AMBULATING WELL WITH S/B ASSISTANCE AND WALKER, STEADY GAIT. SHE DENIES LEFT HIP PAIN. SURGICAL DRESSING TO LEFT HIP IS C,D,I. SHE HAS CHRONIC BACK AND SHOULDER PAIN THAT IS CONSTANTLY PRESENT, EASES WITH ANALGESIA DOWN TO ~6/10. IVF STOPPED, ENCOURAGED TO CONTINUE DRINKING WELL. NO BM X 4 DAYS, STARTED ON DOCUSATE TODAY. BED AND CHAIR ALARMS USED, UP IN CHAIR FOR MOST OF THE DAY. CALL LIGHT IN REACH.
[2025-05-21 20:18] VITALS: BP 126/73
--- NOTE | 2025-05-22 04:16 | NUR ---
SHIFT SUMMARY NO ACUTE EVENTS DURING THIS SHIFT. MEDICATED PER EMAR FOR CHRONIC BACK PAIN. PT RATES 9/10 ON PAIN SCALE. PT REFUSED HS SCHEDULED HEPARIN AND SCHEDULED DOCUSATE @HS WHICH IS ORDERED D/T C/O CONSTIPATION. PT REPORTS HAVING DIARRHEA PRIOR TO ADMISSION AND "EMPTIED OUT". POOR PO INTAKE, TAKING PO FLUIDS WELL. 1-PERSON SBA WITH FWW TO THE RESTROOM. LEFT HIP SURGICAL DRESSING REMAINS C/D/I. BED AT THE LOWEST POSITION, CALL LIGHT W/I REACH. PT IS A/O X3-4, INTERMITTENT CONFUSION NOTED. REORIENTED. PT IS ABLE TO MAKE HER NEEDS KNOWN AND IS COOPERATIVE WITH CARE.
[2025-05-22 04:47] LABS: BASOPHILS ABSOLUTE AUTO 0.08 K/mm3 (0.00-0.23); BASOPHILS PERCENT AUTO 1 % (0-2); EOSINOPHILS ABSOLUTE AUTO 0.23 K/mm3 (0.00-0.68); EOSINOPHILS PERCENT AUTO 4 % (0-6); Hematocrit 32.6 % (33.0-51.0); Hemoglobin 10.3 g/dL (11.5-16.0); IMMATURE GRAN ABSOLUTE AUTO 0.02 K/mm3 (0.00-0.10); IMMATURE GRAN PERCENT AUTO 0 % (0-1); LYMPHOCYTES ABSOLUTE AUTO 2.37 K/mm3 (0.84-5.20); LYMPHOCYTES PERCENT AUTO 42 % (21-46); MONOCYTES ABSOLUTE AUTO 0.58 K/mm3 (0.16-1.47); MONOCYTES PERCENT AUTO 10 % (4-13); Mean Corpuscular HGB Conc 31.6 g/dL (31.5-36.5); Mean Corpuscular Volume 96 fL (80-100); NEUTROPHILS ABSOLUTE AUTO 2.39 K/mm3 (1.96-9.15); NEUTROPHILS PERCENT AUTO 42 % (41-73); NRBC ABSOLUTE 0.00 K/mm3 (0.00-0.02); NRBC Auto 0.0 /100 WBC (0.0-0.2); Platelet Count 288 K/mm3 (150-400); RDW Coefficient Variation 12.4 % (11.7-14.2); RDW Standard Deviation 44.2 fL (35.1-46.3)
[2025-05-22 05:03] VITALS: BP 133/69
[2025-05-22 05:08] LABS: Anion Gap 10.0 mmol/L (3-11); Blood Urea Nitrogen 24.0 mg/dL (8-24); CO2, Blood 25.0 mmol/L (21-32); Calcium, Blood 8.2 mg/dL (8.5-10.1); Chloride, Blood 106.0 mmol/L (98-108); Creatinine, Blood 1.49 mg/dL (0.40-1.00); Glucose, Blood 80.0 mg/dL (70-99); Potassium, Blood 3.5 mmol/L (3.5-5.5); Sodium, Blood 137.0 mmol/L (136-145)
[2025-05-22 07:45] VITALS: BP 145/81
--- NOTE | 2025-05-22 13:05 | NUR ---
ASSUMED CARE PT UP AND AWAKE HOPING TO GO HOME, PT DRESSED AND AT SIDE OF BED, NO C/O PAIN NO DISTRESS. AWAITING FOR MD TO ARRIVE.
--- NOTE | 2025-05-22 15:28 | NUR ---
POST VOID ASSESSMENT PRE VOID AMOUNT 222ML POST VOID AMOUNT 20ML ACTUAL VOID >200ML
--- NOTE | 2025-05-22 19:31 | NUR ---
discharge orders given and implemented, spoke with daughter at length about discharge and why pt was being released. pt up and ambulating without walker, is of sound mind and request to go home. repeat ultrasound showed no hydronephrosis. post uring residual was minimal. pt to be discharged
== END 2025-05-22 20:13 | disposition home health service (06) | DRG 684 ==
LOC: ER 11:09 → MEDS 11:10
PROVIDERS: Student in an Organized Health Care Education/Training Program; ADMIT Internal Medicine
PROC: 0T9B70Z Drainage of Bladder with Drainage Device, Via Natural or Artificial Opening (ICD-10-PCS; principal; 2025-05-20)
PROC: 3E03329 Introduction of Other Anti-infective into Peripheral Vein, Percutaneous Approach (ICD-10-PCS; 2025-05-20)
DX: N17.9 Acute kidney failure, unspecified (principal); J44.9 Chronic obstructive pulmonary disease, unspecified; F32.A Depression, unspecified; F10.20 Alcohol dependence, uncomplicated; I10 Essential (primary) hypertension; N13.30 Unspecified hydronephrosis; R33.9 Retention of urine, unspecified; D64.9 Anemia, unspecified; Z87.81 Personal history of (healed) traumatic fracture; Z79.51 Long term (current) use of inhaled steroids; Z79.891 Long term (current) use of opiate analgesic; Z79.01 Long term (current) use of anticoagulants; Z79.899 Other long term (current) drug therapy; Z79.2 Long term (current) use of antibiotics; Z90.49 Acquired absence of other specified parts of digestive tract; Z90.710 Acquired absence of both cervix and uterus; Z85.3 Personal history of malignant neoplasm of breast; Z98.890 Other specified postprocedural states; Z87.891 Personal history of nicotine dependence
CPT/HCPCS: 36415; 76705; 76770; 80048; 80053; 81003; 82570; 83735; 84300; 85025; 94760; 96360; 96361; 96372; 97110; 97116; 97161; 97165; 97530; 97535; 99285-25; A9270; G0378; J1644; J7030; P9612

== ENCOUNTER → 2025-07-22 | Outpatient (CLI) | payer MEDICARE ==
[2025-07-26 20:23] LABS: 6-ACETYLMORPHINE, URN, QUANT <10 ng/mL; CODEINE, URN, QUANT <20 ng/mL; HYDROCODONE, URN, QUANT 680 ng/mL; HYDROMORPHONE, URN, QUANT <20 ng/mL; MORPHINE, URN, QUANT <20 ng/mL; NORHYDROCODONE, URN, QUANT 898 ng/mL; NOROXYCODONE, URN, QUANT <20 ng/mL; NOROXYMORPHONE, URN, QUANT <20 ng/mL; OXYCODONE, URN, QUANT <20 ng/mL; OXYMORPHONE, URN, QUANT <20 ng/mL
== END ==
LOC: LAB SHORT 17:26 → LAB 17:26
PROVIDERS: Physician Assistant
DX: Z79.891 Long term (current) use of opiate analgesic (principal)
CPT/HCPCS: G0480